=== PATIENT | male | born 1960 | race Caucasian/White ===

== ENCOUNTER 2025-01-06 08:44 | Emergency (ER) | payer MEDICARE, BC, SELFPAY ==
[2025-01-06] VITALS (9 sets, daily range): BP systolic 116–181; BP diastolic 81–100
--- NOTE | 2025-01-06 09:16 | ED.GENMED ---
History of Present Illness
General
Chief Complaint: Heart Rate Problem
Source: patient
Exam Limitations: none
Time Seen by Provider: 01/06/25 09:00
Nursing documentation reviewed up to this point in time: agreed with
History of Present Illness
History of Present Illness:
Patient is a 64-year-old male with past medical history of A-fib, hyperlipidemia on Coumadin presents to the ER for evaluation. Patient ports 2 days ago Thursday he noticed a fluttering in his chest. Last night,patient reports he was cooking and
felt his heart racing he felt exhausted and fatigued. He had no associated chest pain or shortness of breath. He fell asleep after the event. He drove himself to the ER. Currently he is asymptomatic. He does report he had nosebleed around 1 and
half to 2 weeks ago and did see ENT. At that time he believes he was off of Coumadin for about 2 to 3 days. This was last week
Since then he has been taking Coumadin again. He is on verapamil 180 milligrams daily and has not skipped a dose. He denies any caffeine intake or xcfg-[id number] cough cold medicines.
He denies any recent illness fever chills. He denies any lower extremity swelling.
Patient takes Coumadin 2.5 mg 6 days a week and 5 mg 1 day a week
Review of Systems
Review of Systems
Allergies reviewed?: Yes
All Other Systems: ROS reviewed and negative except as documented in HPI and ROS
Phy Exam
General Physical Exam
General Presentation: no apparent distress
General age: appears stated age
General Skin: warm and dry
General Habitus: normal
General Mental: alert
General Hydration: appears well hydrated
Cardiovascular Exam
Cardiovascular Exam: irregularly irregular
Pulmonary Exam
Pulmonary Exam: lungs clear and no respiratory distress
Neurological Exam
Neurological Exam: alert and oriented x3
Musculoskeletal Exam
Musculoskeletal Exam: full ROM
Skin Exam
Skin Exam: normal color and warm/dry
Psychiatric Exam
Psychiatric Exam: normal mood/affect
Course
Orders/Labs/Results
Orders:
Orders
01/06/25 08:44
EKG [Electrocardiogram (*1)] Urgent
Reason for Study: Atrial Fibrillation
EKG- Treatment ONCE
01/06/25 09:31
Cardiac Monitoring- Treatment ONCE
IV Insert/Care/Rem.- Treatment PRN
0.9% Sodium Chloride 1000 ml [Nss] 1,000 ml IV BOLUS
01/06/25 09:32
Chest [CR Chest - 2 Views ] Urgent
Comment:
Reason For Exam: sob
01/06/25 09:34
Complete Blood Count/With Diff Urgent
Comprehensive Metabolic Panel Urgent
D-Dimer Urgent
Comment: D-DIMER ADDED ON BY FLOOR12:18PM 01-06-25
PT/INR [Prothrombin Time] Urgent
TSH Reflex To Free T4 Urgent
Comment: TSH REFLEX ADDED ON BY FLOOR 11:58AM 01-06-25
Troponin I Urgent
01/06/25 11:58
Add On- LAB Urgent
Tests Added?: tsh with relexive t4
01/06/25 12:18
Add On- LAB Urgent
Comments:: Tube in lab
Tests Added?: d-dimer
01/06/25 13:07
CT Chest PE Study Urgent
Comment:
Reason For Exam: sob
Abnormal Lab Results
01/06/25
09:34
Absolute Lymphs (auto) 0.9 L 10^3/uL
(1.2-3.4)
Neutrophils % 77.8 H %
(42.2-75.2)
Lymphocytes % 14.8 L %
(20.5-51.1)
PT 20.4 H Sec
(11.4-14.6)
D-Dimer 0.70 H ug/mlFEU
(0.00-0.50)
Chloride 109 H mmol/L
(98-107)
Glucose 103 H mg/dl
(70-99)
01/06/25 09:34
01/06/25 09:34
Vital Signs
Initial and Last Documented VS:
Initial Vital Signs
Temp Pulse Resp BP Pulse Ox
98.4 F 89 18 181/94 97
01/06/25 08:47 01/06/25 08:47 01/06/25 08:47 01/06/25 08:47 01/06/25 08:47
Last Documented Vital Signs
Temp Pulse Resp BP Pulse Ox
98.8 F 81 18 152/94 94
01/06/25 16:32 01/06/25 16:30 01/06/25 16:30 01/06/25 16:00 01/06/25 16:30
MDM/Problems Addressed
MDM/Problems Addressed:
Patient is a 64-year-old male who presents to the ER for evaluation of palpitations. Patient has a history of chronic A-fib is chronically in A-fib anticoagulated on Coumadin. He was off Coumadin several days last week for a nosebleed otherwise
patient has been taking his Coumadin since then and is taking verapamil 100 mg every day. He denies associated shortness of breath. Patient he denies any associated chest pain. He presents awake alert no acute distress. Patient is in A-fib
however fvh-og-gsyhfcl rate has been controlled here in the ER. His INR however is on 1.73.
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 Patient takes Coumadin 2.5 mg 6 days a
week and 5 mg 1 day a week on Thursday. As reviewed with his hall manager we will have patient take additional 5 mg dose tonight and go back to his previous normal instructions.
CT negative stable for discharge with outpatient cardiology follow-up
*Radiology
Radiology exam reviewed: radiology read reviewed
*Pulse Oximetry
SaO2: 97
Oxygen Mode of Delivery: Room air
Patient hypoxic: no
*EKG
Interpreted by ED Provider?: Yes
Interpretation: abnormal
Comparison EKG: no comparison EKG present
Heart Rate: 99
Rate: normal
Rhythm: sinus
Ischemia: no ischemia
*Critical Care Note
Total Time (30-74mins, 75-104mins- exclusive of procedures): Not Applicable
ED Attending Note
-
Portions of this chart may have been created with voice recognition software.� Occasional wrong word or��sound alike� substitutions may have occurred due to the inherent limitations of voice recognition software.
Discharge Plan
Departure
Patient Disposition: Home (Routine Discharge)
Date of Disposition: 01/06/25
Time of Disposition: 16:01
Patient with high blood pressure during this ER visit?: Yes
Condition: Fair
Covid-19: Not Applicable
Discharge Problem:
Palpitations
Instructions: Palpitations (DC), BLOOD PRESSURE
Referrals:
Norbert Bennett MD [Family Provider, Internal Medicine]
Activity Restrictions/Additional Instructions:
As discussed stay well-hydrated avoid caffeine. Follow-up with your hall manager next week please call to make an appointment return if any worsening of symptoms.
Also as discussed please take a 5 mg dose of Coumadin this evening and then go back to your regular dosing.
Interventions
Interventions:
*Risk Screen - Suicide Last Done: 01/06/25 08:47
*General Assessment Last Done: 01/06/25 08:47
*Neglect/Abuse Screening Last Done: 01/06/25 08:47
*ED- Fall Risk Assessment Last Done: 01/06/25 16:32
*ED COVID-19 Vaccine History Last Done: 01/06/25 09:14
*Nursing Disposition Last Done: 01/06/25 16:32
ED- Cardiac Assessment Last Done: 01/06/25 09:14
ED- Pulmonary Assessment Last Done: 01/06/25 09:14
Discharge Date and Time
Discharge Date/Time: 01/06/25 16:37
Print Language: CITIZEN [place]
[2025-01-06 09:43] LABS: % Basophils 0.8 % (0-2); % Eosinophils 0.8 % (0-6); % Immature Granulocytes 0.3 % (0-0.5); % Lymphocytes 14.8 % (20.5-51.1); % Monocytes 5.5 % (1.7-9.3); % Neutrophils 77.8 % (42.2-75.2); Absolute Basophils 0.1 10^3/uL (0-0.2); Absolute Eosinophils 0.1 10^3/uL (0-0.7); Absolute Lymphocytes 0.9 10^3/uL (1.2-3.4); Absolute Monocytes 0.4 10^3/uL (0.1-0.6); Absolute Neutrophils 4.9 10^3/uL (1.4-6.5); Hematocrit 50.1 % (39.0-52.0); Mean Corp Hgb Conc. 33.9 g/dL (33.0-37.0); Mean Corpuscular Hgb 30.3 pg (27.0-31.0); Mean Corpuscular Volume 89.3 fL (80.0-94.0); Mean Platelet Volume 9.3 fL (7.4-10.4); Nucleated Red Blood Cells % 0 % (-); Platelet Count 174 10^3/uL (130-400); Red Blood Cell Count 5.61 10^6/uL (4.70-6.10); Red Cell Dist. Width 13.5 % (11.5-14.5); White Blood Cell Count 6.3 10^3/uL (4.8-10.8)
[2025-01-06 09:54] LABS: INR 1.73; PT 20.4 Sec (11.4-14.6)
[2025-01-06 10:12] LABS: ALT (SGPT) 29 U/L (0-50); AST (SGOT) 25 U/L (17-59); Albumin 4.6 g/dl (3.5-5.0); Alkaline Phosphatase 69 U/L (38-126); Blood Urea Nitrogen 13 mg/dl (9-20); Calcium 9.2 mg/dl (8.4-10.2); Carbon Dioxide 24 mmol/L (22-30); Chloride 109 mmol/L (98-107); Glucose 103 mg/dl (70-99); Potassium 4.3 mmol/L (3.5-5.1); Sodium 143 mmol/L (135-145); Total Bilirubin 1.1 mg/dl (0.2-1.3); Total Protein 7.5 g/dl (6.3-8.2); eGFR > 60.00
[2025-01-06 10:23] LABS: Troponin I < 0.012 ng/ml
[2025-01-06] MEDS: NSS 1000 IV (12:18)
[2025-01-06 13:05] LABS: TSH Reflex To Free T4 2.15 uIU/ml (0.47-4.68)
== END 2025-01-06 16:37 | disposition home or self-care (01) ==
LOC: EMR 08:44
PROVIDERS: Nurse Practitioner; EMERGENCY PHYSICIAN Emergency Medicine; FAMILY PHYSICIAN Internal Medicine
DX: R00.2 Palpitations (principal); I48.20 Chronic atrial fibrillation, unspecified; Z79.01 Long term (current) use of anticoagulants
CPT/HCPCS: 99285; 71046; 71275; 80053; 84443; 84484; 85025; 85379; 85610; 93005; Q9967